=== PATIENT | male | born 1985 ===

== ENCOUNTER 2018-05-17 03:25 | Emergency (ER) | payer MEDICARE ==
[2018-05-17 03:25] VITALS: BMI 28.3
[2018-05-17 03:39] VITALS: RESP 16
[2018-05-17 05:18] LABS: BASO % 0.3 % (0.0-2.0); EOS # 0.1 K/uL (0.0-0.7); EOS % 1.1 % (0.0-4.0); HEMOGLOBIN 15.7 g/dL (12.0-18.0); LYMPH # 1.7 K/uL (1.0-4.3); LYMPH % 26.8 % (20.0-40.0); MEAN CELL VOLUME 87.9 fl (80.0-94.0); MEAN CORPUSCULAR HEMOGLOBIN 29.7 pg (27.0-31.0); MEAN CORPUSCULAR HGB CONC 33.7 g/dL (33.0-37.0); MEAN PLATELET VOLUME 8.9 fl (7.2-11.7); MONO # 0.4 K/uL (0.0-0.8); MONO % 6.6 % (0.0-10.0); NEUT # 4.2 K/uL (1.8-7.0); NEUT % 65.2 % (50.0-75.0); NRBC % 0.1 % (0.0-0.0); RBC 5.29 Mil/uL (4.40-5.90); RED CELL DISTRIBUTION WIDTH 14.3 % (11.5-14.5); WHITE BLOOD COUNT 6.5 K/uL (4.8-10.8)
[2018-05-17 05:33] LABS: ALB/GLOB RATIO 1.2 (1.0-2.1); ALBUMIN 4.7 g/dL (3.5-5.0); ALT/SGPT 31 U/L (21-72); AST/SGOT 36 U/L (17-59); BLOOD UREA NITROGEN 12 mg/dl (9-20); CALCIUM 9.8 mg/dL (8.4-10.2); GFR NON-AFRICAN AMERICAN > 60
[2018-05-17] MEDS ORDERED: Naproxen 500 MG TAB PO ONE (05:43)
--- NOTE | 2018-05-17 05:52 | ED PDOC ---
HPI: Psych/Substance Abuse Time Seen by Provider: 05/17/18 03:46 Chief Complaint (Nursing): Substance Abuse History Per: Patient Additional Complaint(s): Pt. states today he called the ambulance as he felt unsafe. States he does not think he deserves to live anymore. 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 States he has been feeling great therefore he stopped taking his depakote for the past 2-3 days. Admits to drinking alcohol and smoking marijuana today. Denies HI, hallucinations. Past Medical History Reviewed: Historical Data, Nursing Documentation, Vital Signs Vital Signs: Last Vital Signs Temp 97.5 F L 05/17/18 03:36 Pulse 81 05/17/18 03:36 Resp 16 05/17/18 03:36 BP 135/90 05/17/18 03:36 Pulse Ox 98 05/17/18 03:36 - Medical History PMH: Bipolar Disorder, Depression, HTN, Hypercholesterolemia Denies: Diabetes, Hepatitis, HIV, Chronic Kidney Disease, Seizures, Sexually Transmitted Disease - Family History Family History: States: No Known Family Hx - Immunization History Hx Tetanus Toxoid Vaccination: No Hx Influenza Vaccination: No Hx Pneumococcal Vaccination: No - Home Medications Home Medications: Ambulatory Orders Medication Instructions Recorded RX: Naproxen [EC-Naprosyn] 500 mg PO BID PRN 11/30/17 RX: Clotrimazole 1% Cream 1 applic TOP BID 7 Days #1 tube 12/13/17 [Lotrimin 1% CREAM] RX: Divalproex [Depakote ER(ONCE 2,500 mg PO HS 30 Days #150 ter 12/13/17 DAILY)] RX: Multimineral/Multivitamin 1 tab PO DAILY 30 Days #30 tab 12/13/17 [Therapeutic-M Tab] RX: OLANZapine [Zyprexa] 10 mg PO BID 30 Days #60 tab 12/13/17 RX: Zolpidem [Ambien] 5 mg PO HS #30 tab 12/13/17 RX: Divalproex [Depakote DR] 1,000 mg PO BID #60 tcp 01/03/18 RX: OLANZapine [Zyprexa] 10 mg PO BID #60 tab 01/03/18 RX: traZODone [Desyrel] 50 mg PO HS PRN #30 tab 01/03/18 - Allergies Allergies/Adverse Reactions: Allergies Allergy/AdvReac Type Severity Reaction Status Date / Time No Known Allergies Allergy Verified 12/29/17 19:36 Review of Systems ROS Statement: Except As Marked, All Systems Reviewed And Found Negative Psych: Positive for: Depression, Suicidal ideation Physical Exam - Reviewed Nursing Documentation Reviewed: Yes Vital Signs Reviewed: Yes - Physical Exam Appears: Positive for: Well, Non-toxic, No Acute Distress Head Exam: Positive for: ATRAUMATIC, NORMAL INSPECTION, NORMOCEPHALIC Skin: Positive for: Normal Color, Warm. Negative for: Rash Eye Exam: Positive for: EOMI, Normal appearance, PERRL ENT: Positive for: Normal ENT Inspection Neck: Positive for: Normal, Painless ROM Cardiovascular/Chest: Positive for: Regular Rate, Rhythm Respiratory: Positive for: CNT, Normal Breath Sounds Gastrointestinal/Abdominal: Positive for: Normal Exam, Soft. Negative for: Tenderness Back: Positive for: Normal Inspection Extremity: Positive for: Normal ROM Neurologic/Psych: Positive for: Alert, Oriented (x3), Mood/Affect (cooperative, crying but easily consolable), Other (slurred speech, AOB). Negative for: Aphasia, Facial Droop - Laboratory Results Result Diagrams: 05/17/18 04:45 05/17/18 04:45 Lab Results: Total Bilirubin 0.3 mg/dl (0.2-1.3) 05/17/18 04:45 AST 36 U/L (17-59) 05/17/18 04:45 ALT 31 U/L (21-72) 05/17/18 04:45 Alkaline Phosphatase 46 U/L (38-126) 05/17/18 04:45 Total Protein 8.7 G/DL (6.3-8.2) H 05/17/18 04:45 Albumin 4.7 g/dL (3.5-5.0) 05/17/18 04:45 Globulin 4.0 gm/dL (2.2-3.9) H 05/17/18 04:45 Albumin/Globulin Ratio 1.2 (1.0-2.1) 05/17/18 04:45 - ECG O2 Sat by Pulse Oximetry: 98 - Progress ED Course And Treament: Labs ordered. Pt. placed on 1:1. 0600 Pt. evaluated by Haylie RIVERA who spoke with Dr. Iniguez and cleared pt. for discharge. On re-evaluation, pt. in no distress. No slurred speech. Calm, cooperative, smiling. Gait, steady, unassisted. Denies SI/HI, hallucinations. Disposition - Clinical Impression Clinical Impression: Bipolar disorder - Patient ED Disposition Is Patient to be Admitted: No - Disposition Disposition: Routine/Home Disposition Time: 06:00 Condition: STABLE Instructions: Bipolar Disorder (DC) Forms: [employer] (Dominican)
[2018-05-17 07:17] VITALS: BP 132/86; PULSE 84; TEMP 98.1
[2018-05-17 22:51] VITALS: O2SAT 98
== END 2018-05-17 06:40 | disposition home or self-care (01) ==
LOC: H.ER 03:25
DX: F31.9 Bipolar disorder, unspecified (principal); F12.90 Cannabis use, unspecified, uncomplicated; E78.00 Pure hypercholesterolemia, unspecified; I10 Essential (primary) hypertension; Z79.899 Other long term (current) drug therapy
CPT/HCPCS: 80053; 80164; 85025; 99283; G0480

== ENCOUNTER 2018-07-06 05:41 | Emergency (ER) | payer MEDICARE ==
[2018-07-06 06:00] VITALS: BP 126/78; PULSE 77; RESP 18; TEMP 98.2; O2SAT 99
--- NOTE | 2018-07-06 06:17 | ED PDOC ---
HPI: Back Time Seen by Provider: 07/06/18 05:51 Chief Complaint (Nursing): Back Pain Chief Complaint (Provider): back pain History Per: Patient History/Exam Limitations: no limitations Onset/Duration Of Symptoms: Days Current Symptoms Are (Timing): Still Present Additional Complaint(s): Joni Conroy is a 33 year old male, with a past medical history of bipolar disorder, seizure disorder and HTN, who presents to the emergency department complaining of upper back pain. Patient states he carries a heavy bag and has developed pain because of it. He has used Naproxen for pain but occasionally doesn't alleviate the pain enough. Patient denies any numbness, weakness, changes in urinary habit, fever, chills or other medical complaints. PMD: Dr. Benz Past Medical History Reviewed: Historical Data, Nursing Documentation, Vital Signs Vital Signs: Last Vital Signs Temp 98.2 F 07/06/18 05:59 Pulse 77 07/06/18 05:59 Resp 18 07/06/18 05:59 BP 126/78 07/06/18 05:59 Pulse Ox 99 07/06/18 05:59 - Medical History PMH: Bipolar Disorder, Depression, HTN, Hypercholesterolemia, Seizures Denies: Diabetes, Hepatitis, HIV, Chronic Kidney Disease, Sexually Transmitted Disease - Surgical History Surgical History: No Surg Hx - Family History Family History: States: Unknown Family Hx - Immunization History Hx Tetanus Toxoid Vaccination: No Hx Influenza Vaccination: No Hx Pneumococcal Vaccination: No - Home Medications Home Medications: Ambulatory Orders Medication Instructions Recorded Naproxen [EC-Naprosyn] 500 mg PO BID PRN 11/30/17 Clotrimazole 1% Cream [Lotrimin 1% 1 applic TOP BID 7 Days #1 tube 12/13/17 CREAM] Divalproex [Depakote ER(ONCE 2,500 mg PO HS 30 Days #150 ter 12/13/17 DAILY)] Multimineral/Multivitamin 1 tab PO DAILY 30 Days #30 tab 12/13/17 [Therapeutic-M Tab] OLANZapine [Zyprexa] 10 mg PO BID 30 Days #60 tab 12/13/17 Zolpidem [Ambien] 5 mg PO HS #30 tab 12/13/17 Divalproex [Depakote DR] 1,000 mg PO BID #60 tcp 01/03/18 OLANZapine [Zyprexa] 10 mg PO BID #60 tab 01/03/18 traZODone [Desyrel] 50 mg PO HS PRN #30 tab 01/03/18 Divalproex [Depakote DR] 500 mg PO BID #60 tcp 07/01/18 Olanzapine [Zyprexa] 5 mg PO BID #60 tablet 07/01/18 traZODone [Desyrel] 100 mg PO HS #30 tab 07/01/18 Cyclobenzaprine [Cyclobenzaprine 10 mg PO BID #15 tab 07/06/18 HCl] - Allergies Allergies/Adverse Reactions: Allergies Allergy/AdvReac Type Severity Reaction Status Date / Time No Known Allergies Allergy Verified 07/06/18 06:00 Review of Systems ROS Statement: Except As Marked, All Systems Reviewed And Found Negative Constitutional: Negative for: Fever, Chills Genitourinary Male: Negative for: Dysuria, Frequency, Incontinence Musculoskeletal: Positive for: Back Pain (upper) Neurological: Negative for: Weakness, Numbness Physical Exam - Reviewed Nursing Documentation Reviewed: Yes Vital Signs Reviewed: Yes - Physical Exam Appears: Positive for: Well, No Acute Distress Head Exam: Positive for: ATRAUMATIC, NORMAL INSPECTION, NORMOCEPHALIC Skin: Positive for: Normal Color, Warm, Dry Eye Exam: Positive for: Normal appearance, EOMI, PERRL Neck: Positive for: Normal, Painless ROM Cardiovascular/Chest: Positive for: Regular Rate, Rhythm. Negative for: Murmur Respiratory: Positive for: Normal Breath Sounds. Negative for: Respiratory Distress Gastrointestinal/Abdominal: Positive for: Normal Exam, Soft. Negative for: Tenderness Back: Positive for: Other (Upper thoracic strain, no midline tenderness.). Negative for: L CVA Tenderness, R CVA Tenderness Extremity: Positive for: Normal ROM (upper and lower extremities). Negative for: Tenderness, Deformity Neurological/Psych: Positive for: Awake, Alert, Normal Tone. Negative for: Motor/Sensory Deficits - ECG O2 Sat by Pulse Oximetry: 99 (RA) Pulse Ox Interpretation: Normal Medical Decision Making Medical Decision Making: Time: 05:51 A/P: 33 year old with a past medical history of upper back strain. --Likely muscular strain, not concerned for acute spinal cord pathology, AAA, or any other acute disease. 06:30 -Recommended muscle relaxants, lifestyle modification and acupuncture. Patient is asking for referral to orthopedic. Upon provider evaluation patient is medically stable, and requires no further treatment in the ED at this time. Patient will be discharged home. Counseling was provided and all questions were answered regarding diagnosis and need for follow up with orthopedic. There is agreement to discharge plan. Return if symptoms persist or worsen. Scribe Attestation: Documented by Ranjeet Waterman, acting as a scribe for Catracho Pedroza MD Provider Scribe Attestation: All medical record entries made by the Scribe were at my direction and personally dictated by me. I have reviewed the chart and agree that the record accurately reflects my personal performance of the history, physical exam, medical decision making, and the department course for this patient. I have also personally directed, reviewed, and agree with the discharge instructions and disposition. Disposition - Clinical Impression Clinical Impression: Back pain - Disposition Referrals: Ramiro Humphrey III, MD [Staff Provider] - Disposition: Routine/Home Disposition Time: 06:30 Condition: STABLE Prescriptions: Cyclobenzaprine [Cyclobenzaprine HCl] 10 mg PO BID #15 tab Instructions: Upper Back Pain (DC) Forms: [employer] (Macedonian)
== END 2018-07-06 06:30 | disposition home or self-care (01) ==
LOC: H.ER 05:41
DX: M54.6 Pain in thoracic spine (principal); Z86.59 Personal history of other mental and behavioral disorders; G40.909 Epilepsy, unspecified, not intractable, without status epilepticus; I10 Essential (primary) hypertension; X58.XXXA Exposure to other specified factors, initial encounter; Z79.899 Other long term (current) drug therapy